=== PATIENT | male | born 1975 | race Hispanic/Latino ===

== ENCOUNTER 2018-08-25 08:02 | Emergency (ER) | payer SELFPAY ==
[~2018-08-25] VITALS: Ht 182.9 cm; Wt 128.0 kg
[2018-08-25 08:06] VITALS: BP 200/132
[2018-08-25] MEDS ORDERED: CEPHALEXIN500 M1 PO (08:30)
== END 2018-08-25 08:58 | disposition home or self-care (01) | DRG 349 ==
LOC: ED 08:02 → EDBD 08:37 → ED 08:58
PROC: 06BY0ZC Excision of Hemorrhoidal Plexus, Open Approach (ICD-10-PCS; principal; 2018-08-25)
DX: K64.5 Perianal venous thrombosis (principal); I10 Essential (primary) hypertension; E78.00 Pure hypercholesterolemia, unspecified